=== PATIENT | female | born 1985 | race Caucasian/White ===

== ENCOUNTER 2016-06-27 11:44 | Inpatient (IN) | payer OTHER ==
[~2016-06-27] VITALS: Ht 170.2 cm; Wt 74.4 kg
--- NOTE | ~2016-06-27 | HC ---
[facility] [place] [address] CONSULTATION Name: CURRY HIGUERA Room #: [facility] ADM IN M.R.#: [id number] Admission: 06/27/16 Attend Phys: Yuri Charles MD Discharge: Date of : 85 Report #: [id number] THIS REPORT FOR: //name// CC: Alia Charles DATE OF SERVICE: 06/27/2016 PULMONARY CONSULTATION. REASON FOR CONSULTATION: Iatrogenic pneumothorax. HISTORY OF PRESENT ILLNESS: The patient is a 30-year-old white female who was admitted with left-sided pneumothorax. She had a recent lung biopsy. The patient is normally followed longitudinally by Dr. Main Christianson in the office. She is being followed for a lung nodule. She recently had a bronchoscopy which was felt to be nondiagnostic. Two days ago, she underwent a needle biopsy of a left pleural-based lung nodule. She then complained of left-sided neck pain, dyspnea and chest pains. Chest x-ray performed showed a small left-sided pneumothorax. It is about less than 10% pneumothorax. Currently, she feels better. She denies any recent febrile illness, night sweats or chills. PAST MEDICAL HISTORY: Notable for pleural-based left lung nodule, currently undergoing evaluation; otherwise, unremarkable. PAST SURGICAL HISTORY: Includes cholecystectomy, appendectomy and bilateral tubal ligation. ALLERGIES: MORPHINE, reactions not specified. HOME MEDICATIONS: Reviewed. This includes Prilosec. FAMILY HISTORY: Noncontributory. SOCIAL HISTORY: The patient has smoked, but quit less than a year ago. She drinks occasional alcohol. She is . REVIEW OF SYSTEMS: As mentioned above, otherwise 10-point system review negative. PHYSICAL EXAMINATION: GENERAL: On examination, she is awake, alert, in no apparent distress. [facility] [address] [place] [address] CONSULTATION Name: CURRY HIGUERA Room #: [facility] IN M.R.#: [id number] Admission: 06/27/16 Attend Phys: Yuri Charles MD Discharge: Date of : 85 Report #: [id number] VITAL SIGNS: Temperature is 98 degrees Fahrenheit, pulse is 80, respiratory rate is 18, blood pressure 100/67 mmHg and saturation is 98%. HEENT: Normocephalic, atraumatic. NECK: Supple, without any lymphadenopathy or thyromegaly. CHEST: Breath sounds are clear bilaterally, without any rales or wheezes. CARDIOVASCULAR: Normal S1, S2. There are no murmurs or gallop. There is no JVD. There is no carotid bruit. Pulses are 2+/4+ bilaterally. ABDOMEN: Soft, nontender. No organomegaly or masses felt. EXTREMITIES: There is no edema, cyanosis or clubbing. LABORATORY DATA: Chest x-ray and CT of the neck is reviewed, showing small left-sided pneumothorax, measuring less than 10%. Electrolytes are normal. WBC 6900, hemoglobin is 15.0 and platelets are normal. IMPRESSION: 1. Iatrogenic left pneumothorax, following needle biopsy. 2. Pleural-based left lung nodule, undetermined etiology. RECOMMENDATIONS: We will start 2 liters of O2 for her pneumothorax. This will facilitate reabsorption of the in the chest cavity. Followup chest x-ray in the morning. If pneumothorax is stable, the patient could be discharged and follow on an outpatient setting. Thank you for this consultation. <ELECTRONICALLY SIGNED> By: Barney Reyna MD 06/28/16 1647 [id number] Barney Reyna MD /nt
[~2016-06-27 11:44] MED LIST: ACETAMINOPHEN-1 EAC1 PO; FLAGYL500 MG PO; HAIR, SKIN & N1 EAC1 PO; IBUPROFEN 600600 M1 PO; PRILOSEC OTC20 MG PO; VENTOLIN HFA 1818 GM INH
[2016-06-27 12:07] LABS: ABSOLUTE NEUTROPHILS 4.2 thou/uL (1.4-8.2); EOSINOPHILS 2.1 % (0.0-3.0); HEMATOCRIT 42.7 % (37.0-47.0); LYMPHOCYTES 29.4 % (24.0-44.0); MCH 31.3 pg (26.0-34.0); MCV 89.4 fL (80.0-100.0); MONOCYTES 6.4 % (1.0-8.0); PLATELET COUNT 290 thou/uL (150-400); POLYS 61.1 % (36.0-66.0); RBC 4.78 mil/uL (4.20-5.00); RDW 12.1 % (10.5-14.5); WBC 6.9 thou/uL (4.0-11.0)
[2016-06-27 12:08] LABS: MANUAL DIFF NO
[2016-06-27 12:16] LABS: CALCIUM 9.4 mg/dL (8.5-10.1); CREATININE 0.7 mg/dL (0.6-1.3); POTASSIUM 3.9 mmol/L (3.5-5.1)
[2016-06-27 13:38] VITALS: BP 119/78
[2016-06-27 19:14] VITALS: BP 112/71
[2016-06-27 23:50] VITALS: BP 105/65
[2016-06-28 05:10] VITALS: BP 107/67
[2016-06-28 06:09] LABS: ABSOLUTE NEUTROPHILS 2.6 thou/uL (1.4-8.2); BASOPHILS 0.7 % (0.0-2.0); EOSINOPHILS 5.2 % (0.0-3.0); HEMATOCRIT 40.5 % (37.0-47.0); HEMOGLOBIN 13.8 gm/dL (12.0-15.0); MCH 31.1 pg (26.0-34.0); MCV 91.5 fL (80.0-100.0); MONOCYTES 9.1 % (1.0-8.0); PLATELET COUNT 296 thou/uL (150-400); RBC 4.42 mil/uL (4.20-5.00); RDW 11.9 % (10.5-14.5); WBC 5.8 thou/uL (4.0-11.0)
[2016-06-28 06:22] LABS: CALCIUM 8.9 mg/dL (8.5-10.1); CREATININE 0.8 mg/dL (0.6-1.3); MAGNESIUM 1.9 mg/dL (1.8-2.4); POTASSIUM 3.9 mmol/L (3.5-5.1)
[2016-06-28 06:28] LABS: MANUAL DIFF NO
[2016-06-28 08:00] VITALS: BP 110/59
[2016-06-28 16:17] VITALS: BP 117/68
[2016-06-28 19:00] VITALS: BP 119/75
[2016-06-29 03:25] VITALS: BP 105/71
[2016-06-29 08:00] VITALS: BP 122/75
[2016-06-29] MEDS ORDERED: LORTAB 5-325 M1 EACH PO (11:54)
[2016-06-29] MEDS ORDERED: CYCLOBENZAPRINE5 MG PO (11:54)
[2016-06-29 14:26] VITALS: BP 122/75
== END 2016-06-29 15:10 | disposition home or self-care (01) | DRG 201 ==
LOC: ER 11:44 → 4N 12:36 → EROBS 12:36 → 4N 12:52 → ER 12:52 → 4N 13:24
PROVIDERS: Emergency Medicine; Internal Medicine; Nurse Practitioner
PROC: 0BBG3ZX Excision of Left Upper Lung Lobe, Percutaneous Approach, Diagnostic (ICD-10-PCS; principal; 2016-06-25)
DX: J93.9 Pneumothorax, unspecified (principal); R91.1 Solitary pulmonary nodule; F41.9 Anxiety disorder, unspecified; Z90.49 Acquired absence of other specified parts of digestive tract; Z98.890 Other specified postprocedural states; Z88.6 Allergy status to analgesic agent; Z87.891 Personal history of nicotine dependence
CPT/HCPCS: 10091